=== PATIENT | female | born 1935 | race Caucasian/White ===

== ENCOUNTER → 2018-03-17 10:32 | Outpatient (CLI) | payer MEDICARE, OTHER, SELFPAY ==
--- NOTE | 2018-03-17 | LES_PTH ---
PATIENT: ROGER DAI LOC: [facility] U#:[id number] AGE/SX: 89/F ROOM: RE03/17/[address]: Dr. 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 See comment. Actinic keratosis and solar elastosis. SJ:oralia 03/18/18 COMMENT A few detached atypical clusters of basaloid cells are also noted at the deep margin of the specimen mixed with blood. Correlation with clinical and appropriate follow up are necessary. MICROSCOPIC DESCRIPTION Slides are reviewed. GROSS DESCRIPTION Received in fixative is one container labeled with the patient's name and designated left lower lid. The specimen consists of a piece of franco-brown skin measuring 0.5 x 0.2 x 0.1 cm. The specimen is totally submitted in one cassette. / SJ:oralia 03/17/18 TC:0 [facility]: [id number]
== END ==
PROVIDERS: Visit Provider Ophthalmology
DX: C44.119 Basal cell carcinoma of skin of left eyelid, including canthus (principal); L57.0 Actinic keratosis; L57.8 Other skin changes due to chronic exposure to nonionizing radiation
CPT/HCPCS: 88305

== ENCOUNTER → 2021-03-19 | Outpatient (CLI) | payer MEDICARE, OTHER, SELFPAY ==
--- NOTE | 2021-03-19 11:30 | LES_PTH ---
PATIENT: ROGER DAI [facility]: [facility] U#:[id number] AGE/SX: 86/F ROOM: RE03/19/[address]: Dr. Jeremiah Castillo MD : 1935 BED: DIS: 03/19/2021 SPEC #: [id number] RECD: 03/19/21 15:09 STATUS: MAXIMINO QUEZADA #: [id number] STUART: 03/19/21 11:[address]: Jeremiah Castillo DEPT: SURGICAL PATHOLOGY RECD BY: Anel Marmolejo Tissues: Skin of eyelid, NOS Procedures: Surgery Specimen Level IV HEADER OPERATION: Removed left lower lid lesion PRE-OP DIAGNOSIS: Prior basal cell removed adjacent area TISSUE SUBMITTED: Left lower lid lesion MICROSCOPIC DIAGNOSIS Left lower eyelid lesion, biopsy: Lipogranulomatous inflammation with degenerative change. No evidence of malignancy. AM:oralia 03/21/2021 COMMENT Case has been reviewed in consultation with Dr. Harvey who concurs with the above diagnosis. IDC:SJ MICROSCOPIC DESCRIPTION Slides are reviewed. GROSS DESCRIPTION Received in fixative is one container labeled with the patient's name and designated left lower eyelid lesion. The specimen consists of a piece of franco-white skin measuring 0.3 x 0.2 x 0.1 cm. The specimen is totally submitted in one cassette. / VLAD:oralia 03/20/21 TC:3 CPT: 24423
== END | disposition home or self-care (01) ==
PROVIDERS: Referring Provider Ophthalmology; Visit Provider Ophthalmology
DX: H02.9 Unspecified disorder of eyelid (principal)
CPT/HCPCS: 88305